=== PATIENT | female | born 2000 | race Caucasian/White ===

== ENCOUNTER 2018-06-25 20:10 | Emergency (ER) | payer BC ==
[~2018-06-25] VITALS: Ht 180.3 cm; Wt 70.5 kg
[2018-06-25 20:23] VITALS: BP 105/55; TEMP 98.9
[2018-06-25] MEDS ORDERED: ULTRAM 50MG TAB50 MG PO (21:57)
[2018-06-25 22:24] VITALS: PULSE 80
== END 2018-06-25 22:25 | disposition home or self-care (01) ==
LOC: COL.ER 20:10
DX: S86.911A Strain of unspecified muscle(s) and tendon(s) at lower leg level, right leg, initial encounter (principal); Z88.0 Allergy status to penicillin; X50.0XXA Overexertion from strenuous movement or load, initial encounter; Y92.410 Unspecified street and highway as the place of occurrence of the external cause
CPT/HCPCS: L1846

== ENCOUNTER 2021-03-15 08:01 | Emergency (ER) | payer OTHER ==
[~2021-03-15] VITALS: Ht 177.8 cm; Wt 86.4 kg
[~2021-03-15 08:01] MED LIST: ULTRAM 50MG TAB50 MG PO
[2021-03-15 09:05] VITALS: TEMP 99.3
[2021-03-15 09:14] LABS: COLLECTION METHOD CLEAN CATCH
[2021-03-15 09:22] LABS: MUCOUS Present (NOT PRESENT); PH 5 (5-8); URINE APPEARANCE Hazy (CLEAR/HAZY); URINE BACTERIA Occasional (NONE SEEN); URINE BILIRUBIN Negative (NEGATIVE); URINE BLOOD 1+ (NEGATIVE); URINE COLOR Amber (YELLOW); URINE GLUCOSE Negative (NEGATIVE); URINE KETONE Negative (NEGATIVE); URINE LEUKOCYTE ESTERASE 1+ (NEGATIVE); URINE NITRATE Positive (NEGATIVE); URINE PROTEIN(semi-quant) 1+ (NEGATIVE); URINE WBC >50 /hpf (0-2)
[2021-03-15] MEDS ORDERED: ZOFRAN ODT4 MG PO (11:34)
[2021-03-15] MEDS ORDERED: CIPRO 500MG TA500 MG PO (11:34)
[2021-03-15] MEDS ORDERED: NORCO 325 MG-51 TAB PO (11:34)
[2021-03-15 11:51] VITALS: BP 108/69; PULSE 92
== END 2021-03-15 11:48 | disposition home or self-care (01) ==
LOC: COL.ER 08:01
PROVIDERS: Personal Emergency Response Attendant
DX: N12 Tubulo-interstitial nephritis, not specified as acute or chronic (principal); Z88.0 Allergy status to penicillin; Z32.02 Encounter for pregnancy test, result negative
CPT/HCPCS: J0696